=== PATIENT | male | born 1960 | race Two or more races ===

== ENCOUNTER 2024-06-05 13:31 | Emergency (ER) | payer BC ==
[~2024-06-05] VITALS: Ht 167.6 cm; Wt 74.8 kg
[2024-06-05] MEDS ORDERED: NIFEDIPINE20 MG (14:49)
[2024-06-05] MEDS ORDERED: HYDRALAZINE HCL25 MG PO (14:49)
[2024-06-05] MEDS ORDERED: BUPROPION HCL75 MG PO (14:50)
[2024-06-05] MEDS ORDERED: FAMOtidine 10 MG/ML (4ML VIAL) IV ONE (17:00)
[2024-06-05] MEDS ORDERED: LORazepam 2 MG/ML VIAL IM ONE (17:00)
[2024-06-05] MEDS ORDERED: 0.9 % SODIUM CHLORIDE 1,000 ML IV ONE (17:00)
[2024-06-05 17:28] LABS: HEMATOCRIT 44.4 % (39.0-48.0); HEMOGLOBIN 15.4 g/dL (13-16.00); MEAN CELL VOLUME 99.2 fL (80.0-100.00); MEAN CORPUSCULAR HEMOGLOBIN 34.5 pg (27.00-32.0); MEAN CORPUSCULAR HGB CONC 34.7 g/dl (32.0-36.0); PLATELET COUNT 235 K/uL (150-450); RED BLOOD COUNT 4.47 M/uL (4.00-6.00); RED CELL DISTRIBUTION WIDTH 12.6 % (11.5-14.5)
[2024-06-05 17:54] LABS: ALBUMIN 3.5 gm/dL (3.4-5.0); BILIRUBIN TOTAL 1.05 mg/dL (0.3-1.2); CALCIUM 8.8 mg/dL (8.5-10.1); CREATININE SERUM 0.86 mg/dL (0.70-1.30); GFR 90.11; POTASSIUM 3.2 mEq/L (3.5-5.1); TOTAL PROTEIN 7.5 gm/dL (6.4-8.2)
== END 2024-06-05 18:56 | disposition home or self-care (01) ==
LOC: ER 13:32
PROVIDERS: General Practice
DX: F41.8 Other specified anxiety disorders (principal); R19.7 Diarrhea, unspecified; I10 Essential (primary) hypertension